=== PATIENT | male | born 1945 | race Two or more races ===

== ENCOUNTER 2020-09-13 08:00 | Day surgery (SDC) | payer OTHER | END 2020-09-13 14:00 | disposition home or self-care (01) | LOC: AMB-ENDOS 08:00 | PROVIDERS: ATTEND Colon & Rectal Surgery | DX: K62.89 Other specified diseases of anus and rectum (principal); K64.2 Third degree hemorrhoids; Z20.828 Contact with and (suspected) exposure to other viral communicable diseases ==